=== PATIENT | female | born 2000 | race Caucasian/White ===

== ENCOUNTER 2020-04-25 19:20 | Emergency (ER) | payer SELFPAY ==
[~2020-04-25] VITALS: Ht 167.6 cm; Wt 47.6 kg
[2020-04-25] MEDS ORDERED: FLUORESCEIN SODIUM OPHTH 1 EA STRIP ONE (19:53)
[2020-04-25] MEDS ORDERED: TETRAcaine 5 ML BOTTLE EACHEYE ONE (20:00)
[2020-04-25] MEDS ORDERED: FLUORESCEIN SODIUM OPHTH 1 EA STRIP OP ONE (20:00)
--- NOTE | 2020-04-25 20:02 | NUR ---
BIBS FROM HOME TO ER BED 6. AAOX4. NOT IN RESP DISTRESS. AMBULATORY. CAME IN FOR L EYE PAIN AND SWELLING X 3 DAYS S/P USING [employer] CONTACT LENSE. PT REPROTS THAT THAT IT SATRTED ITHING AFTER USING THE CONTACT LENSE AND STARTED TO SCRATCH IT. SHE STATES THAT HER VISION ON THE L EYE IS HAZZY. NOT EYE REDNESS BUT NOTED PERIORBITAL SWELLING. PT ALSO STATES THAT HER VISION IS BETTER THAT WHEN IT STARTED. KEVIN MOSQUERA AT BEDSIDE FOR EVAL. ORDERS RECEIVED NOTED AND CARRIED OUT
--- NOTE | 2020-04-25 20:15 | NUR ---
Patient discharged to home in stable condition. Written and verbal after care instructions given. Patient verbalizes understanding of instruction. Pt ambulatory with a steady gait
[2020-04-25 20:16] VITALS: BP 146/91
== END 2020-04-25 20:16 | disposition home or self-care (01) ==
LOC: ER 19:26
DX: H18.822 Corneal disorder due to contact lens, left eye (principal); H10.9 Unspecified conjunctivitis

== ENCOUNTER 2021-10-09 20:37 | Emergency (ER) | payer MEDICAID ==
[~2021-10-09] VITALS: Ht 167.6 cm; Wt 47.6 kg
[2021-10-09 20:56] VITALS: BP 118/74
[2021-10-09] MEDS ORDERED: HYDR-4209 PO (21:02)
--- NOTE | 2021-10-09 21:03 | NUR ---
PT BIB MOTHER C/O TOOTHACHE. AWAITING APPOINTMENT FOR ROOTCANAL. ON ATB AMOXICILLIN 500MG. IBUPROFEN 800MG PRESCRIBED WITH NO RELIEF
[2021-10-09] MEDS ORDERED: HYDROCODONE/APAP 5/325MG TABLET ONE (21:04)
--- NOTE | 2021-10-09 21:07 | NUR ---
Patient discharged to home in stable condition. Written and verbal after care instructions given. Patient verbalizes understanding of instruction. PT ambulatory with a steady gait
[2021-10-09] MEDS ORDERED: HYDROCODONE/APAP 5/325MG TABLET PO ONE (21:30)
== END 2021-10-09 21:08 | disposition home or self-care (01) ==
LOC: ER 20:44
DX: K02.51 Dental caries on pit and fissure surface limited to enamel (principal); Z91.013 Allergy to seafood; Z79.891 Long term (current) use of opiate analgesic

== ENCOUNTER 2022-02-11 22:43 | Emergency (ER) | payer MEDICAID ==
[~2022-02-11] VITALS: Ht 167.6 cm; Wt 45.4 kg
[~2022-02-11 22:43] MED LIST: HYDR-4209 PO
[2022-02-11 23:54] VITALS: BP 121/84
[2022-02-12] MEDS ORDERED: CEPH500C2 PO (00:01)
[2022-02-12] MEDS ORDERED: SULF1TAB48 PO (00:01)
== END 2022-02-12 00:13 | disposition home or self-care (01) ==
LOC: ER 22:57
DX: H66.41 Suppurative otitis media, unspecified, right ear (principal); Z98.890 Other specified postprocedural states

== ENCOUNTER 2023-05-25 19:46 | Emergency (ER) | payer MEDICAID ==
[~2023-05-25] VITALS: Ht 167.6 cm; Wt 42.6 kg
[~2023-05-25 19:46] MED LIST changes: +CEPH500C2 PO; +SULF1TAB48 PO
[2023-05-25 22:37] LABS: BASOPHILS % (AUTO) 0.4 % (0.0-2.0); EOSINOPHILS % (AUTO) 0.2 % (0.0-6.0); HEMATOCRIT 46 % (33-45); HEMOGLOBIN 15.3 g/dL (11.5-14.8); LYMPHOCYTES % (AUTO) 31.5 % (20.0-44.0); MEAN CORPUSCULAR HEMOGLOBIN 29 PG (26.0-33.0); MEAN CORPUSCULAR HGB CONC 33 g/dl (31.0-36.0); MEAN CORPUSCULAR VOLUME 86 fL (82-100); MONOCYTES # (AUTO) 0.5 K/uL (0.1-1.30); MONOCYTES % (AUTO) 5.2 % (2.0-12.0); NEUTROPHILS % (AUTO) 62.7 % (43.0-81.0); PLATELET COUNT (AUTO) 367 K/uL (150-450); RED BLOOD CELL COUNT(AUTO) 5.35 MIL/uL (4.0-5.2); WHITE BLOOD COUNT (AUTO) 9.6 K/uL (4.3-11.0)
[2023-05-25 22:43] LABS: CALCIUM, SERUM 9.8 mg/dL (8.5-10.1); CARBON DIOXIDE 27 mmol/L (21-32); CHLORIDE 100 mmol/L (98-107); CREATININE 0.6 mg/dL (0.6-1.3); GLUCOSE 95 mg/dL (74-106); SODIUM SERUM 134 mmol/L (136-145); UREA NITROGEN, BLOOD 9 mg/dL (7-18)
[2023-05-25 23:06] LABS: PREGNANCY TEST URINE QUAL NEGATIVE (NEGATIVE)
[2023-05-26 00:46] VITALS: BP 137/79; TEMP 97.8; O2SAT 99
== END 2023-05-25 23:46 | disposition home or self-care (01) ==
LOC: ER 19:51
DX: R00.2 Palpitations (principal); R10.2 Pelvic and perineal pain; Z98.890 Other specified postprocedural states; Z79.899 Other long term (current) drug therapy
CPT/HCPCS: 36415; 71045-TC; 80048-TC; 84484-TC; 84703-TC; 85025-TC